=== PATIENT | female | born 1990 | race Caucasian/White ===

== ENCOUNTER → 2018-09-07 | Outpatient (CLI) | payer OTHER ==
[~2018-09-07] MED LIST: ACHD5005 PO; Benzocaine/Menthol TP; DOCU100C37 PO; DOXY1TAB6 PO; IBUP-844 PO; ONDA4TAB11 PO; PREN-37 PO
== END ==
LOC: LABNPT 15:00
PROVIDERS: ATTEND Obstetrics & Gynecology
DX: O13.9 Gestational [pregnancy-induced] hypertension without significant proteinuria, unspecified trimester (principal)
CPT/HCPCS: 82570; 84156

== ENCOUNTER 2018-09-28 09:15 | Observation (INO) | payer OTHER ==
[~2018-09-28] VITALS: Ht 175.3 cm; Wt 127.9 kg
--- NOTE | 2018-09-28 09:15 | NUR ---
Pt arrived to unit ambulates self from clinic accompanied by lanioMadeline and Dr Ramos. Orders received. pt here for monitoring and labs due to bp obtained in office. wt obtained and to room 315. Gowned and to bed. oriented to room, call light and bed controls. plan of care reviewed with pt. and s.o. at bedside.
--- NOTE | 2018-09-28 09:30 | NUR ---
fresh ice water to bedside.
[2018-09-28] MEDS ORDERED: PREN-37 PO (09:33)
[2018-09-28] MEDS ORDERED: ONDA4TAB11 PO (09:33)
[2018-09-28] MEDS ORDERED: DOXY1TAB6 PO (09:33)
[2018-09-28 09:35] VITALS: BP 137/70
--- NOTE | 2018-09-28 09:45 | NUR ---
Dr Ramos notified of 1st bp obtained.
[2018-09-28 09:55] VITALS: BP 121/69
--- NOTE | 2018-09-28 09:55 | NUR ---
Sono to bedside for BPP
--- NOTE | 2018-09-28 10:00 | NUR ---
pt denies feeling contractions.
[2018-09-28 10:12] LABS: BASOPHILS % (AUTO) 0 % (0-10); EOSINOPHILS % (AUTO) 0 % (0-10); HEMATOCRIT 36 % (35-52); HEMOGLOBIN 12.2 G/DL (11.5-16.0); LYMPHOCYTES # (AUTO) 1.3 X 10^3 (1.0-4.0); LYMPHOCYTES % (AUTO) 15 % (12-44); MEAN CORPUSCULAR HEMOGLOBIN 29 PG (25-34); MEAN CORPUSCULAR HGB CONC 34 G/DL (32-36); MEAN CORPUSCULAR VOLUME 87 FL (80-99); MEAN PLATELET VOLUME 9.4 FL (7.4-10.4); MONOCYTES # (AUTO) 0.5 X 10^3 (0.0-1.0); MONOCYTES % (AUTO) 6 % (0-12); NEUTROPHILS # (AUTO) 6.9 X 10^3 (1.8-7.8); NEUTROPHILS % (AUTO) 79 % (42-75); PLATELET COUNT 291 10^3/uL (130-400); RED CELL DISTRIBUTION WIDTH 13.8 % (10.0-14.5); WHITE BLOOD COUNT 8.7 10^3/uL (4.3-11.0)
[2018-09-28 10:15] VITALS: BP 120/73
[2018-09-28 10:36] LABS: ALANINE AMINOTRANSFERASE 10 U/L (0-55); ALBUMIN 3.4 GM/DL (3.2-4.5); ALKALINE PHOSPHATASE 97 U/L (40-136); BILIRUBIN,TOTAL 0.2 MG/DL (0.1-1.0); BUN/CREATININE RATIO 10; CALCIUM 9.1 MG/DL (8.5-10.1); CARBON DIOXIDE 18 MMOL/L (21-32); CHLORIDE 106 MMOL/L (98-107); CREATININE SERUM 0.62 MG/DL (0.60-1.30); GFR ESTIMATED > 60; GLUCOSE 82 MG/DL (70-105); SODIUM 136 MMOL/L (135-145); TOTAL PROTEIN 6.4 GM/DL (6.4-8.2); URIC ACID 4.4 MG/DL (2.6-7.2)
--- NOTE | 2018-09-28 10:49 | Diagnostic Imaging Report ---
TECHNIQUE: Multiple real-time grayscale images were obtained over the gravid uterus. INDICATION: Elevated maternal blood pressure. COMPARISON: 05/31/2018. FINDINGS: Biophysical Profile Score: Movement: 2 Breathin Tone: 2 Fluid: 2 Total: 12/16 Heart Rate: 152 BPM Presentation is cephalic. Placenta is anterior in position. TEODORO is 9.7cm. The single largest vertical pocket is 5.7 cm. IMPRESSION: Normal Biophysical Profile Score. Dictated by: Dictated on workstation # [id number]
[2018-09-28 10:55] VITALS: BP 126/76
[2018-09-28 10:57] LABS: URINE CREATININE FOR RATIO 34 MG/DL (30-125); URINE PROTEIN FOR RATIO ONLY < 6 MG/DL (6-12)
--- NOTE | 2018-09-28 10:57 | NUR ---
Dr Ramos to bedside and reviewed plan of care with pt and at bedside.
--- NOTE | 2018-09-28 11:00 | NUR ---
New orders received for discharge
[2018-09-28 11:15] VITALS: BP 131/76
--- NOTE | 2018-09-28 11:30 | NUR ---
Discharge instructions explained, signed and copy to pt. pt verbalized understanding of instructions and denied questions. Ambulates self off unit accompanied by s.o. To private vehicle with belongings in hand.
== END 2018-09-28 11:16 | disposition home or self-care (01) ==
LOC: LDRP 09:15
PROVIDERS: ADMIT Obstetrics & Gynecology; ATTEND Obstetrics & Gynecology
DX: R03.0 Elevated blood-pressure reading, without diagnosis of hypertension (principal); Z3A.37 37 weeks gestation of pregnancy
CPT/HCPCS: 36415; 76805; 76819; 80053; 82570; 84156; 84550; 85025; 99211; G0378

== ENCOUNTER 2018-10-06 18:34 | Inpatient (IN) | payer OTHER ==
[~2018-10-06] VITALS: Ht 175.3 cm; Wt 127.9 kg
[~2018-10-06 18:34] MED LIST changes: -ACHD5005 PO; -Benzocaine/Menthol TP; -DOCU100C37 PO; -IBUP-844 PO
--- OUTSIDE RECORDS SUMMARY | 2018-10-06 18:39 | XMS REPORT | Continuity of Care Document ---
Author Organization Unknown Address Unknown Allergies Active Description Code Type Severity Reaction Onset Reported/Identified Relationship to Patient Clinical Status Yes No Known Drug Allergies [id number] Drug Allergy Unknown N/A 09/28/2018 Medications There is no data. Problems Date Dx Coded Attending Type Code Diagnosis Diagnosed By 06/01/2018 SILVER LOPEZ DO S Ot Z36.89 ENCOUNTER FOR OTHER SPECIFIED 06/01/2018 DAVIDECH DOSILVER S Ot Z3A.20 20 WEEKS GESTATION OF 06/14/2018 DAVIDECH SILVER WHITE S Ot Z36.89 ENCOUNTER FOR OTHER SPECIFIED 06/14/2018 DAVIDECH DOSILVER S Ot Z3A.20 20 WEEKS GESTATION OF 09/28/2018 SILVER LOPEZ DO S Ot R03.0 ELEVATED BLOOD-PRESSURE READING, W/O YINKA 09/28/2018 DAVIDECH SILVER WHITE S Ot Z3A.37 37 WEEKS GESTATION OF Procedures There is no data. Results Test Result Range Complete blood count (CBC) with automated white blood cell (WBC) differential - 09/28/18 09:50 Blood leukocytes automated count (number/volume) 8.7 10*3/uL 4.3-11.0 Blood erythrocytes automated count (number/volume) 4.17 10*6/uL 4.35-5.85 Venous blood hemoglobin measurement (mass/volume) 12.2 g/dL 11.5-16.0 Blood hematocrit (volume fraction) 36 % 35-52 Automated erythrocyte mean corpuscular volume 87 [foz_us] 80-99 Automated erythrocyte mean corpuscular hemoglobin (mass per erythrocyte) 29 pg 25-34 Automated erythrocyte mean corpuscular hemoglobin concentration measurement (mass/volume) 34 g/dL 32-36 Automated erythrocyte distribution width ratio 13.8 % 10.0- 14.5 Automated blood platelet count (count/volume) 291 10*3/uL 130-400 Automated blood platelet mean volume measurement 9.4 [foz_us] 7.4-10.4 Automated blood neutrophils/100 leukocytes 79 % 42-75 Automated blood lymphocytes/100 leukocytes 15 % 12-44 Blood monocytes/100 leukocytes 6 % 0-12 Automated blood eosinophils/100 leukocytes 0 % 0-10 Automated blood basophils/100 leukocytes 0 % 0-10 Blood neutrophils automated count (number/volume) 6.9 10*3 1.8-7.8 Blood lymphocytes automated count (number/volume) 1.3 10*3 1.0-4.0 Blood monocytes automated count (number/volume) 0.5 10*3 0.0- 1.0 Automated eosinophil count 0.0 10*3/uL 0.0-0.3 Automated blood basophil count (count/volume) 0.0 10*3/uL 0.0-0.1 Comprehensive metabolic panel - 09/28/18 09:50 Serum or plasma sodium measurement (moles/volume) 136 mmol/L 135-145 Serum or plasma potassium measurement (moles/volume) 4.0 mmol/L 3.6-5.0 Serum or plasma chloride measurement (moles/volume) 106 mmol/L 98-107 Carbon dioxide 18 mmol/L 21-32 Serum or plasma anion gap determination (moles/volume) 12 mmol/L 5-14 Serum or plasma urea nitrogen measurement (mass/volume) 6 mg/dL 7-18 Serum or plasma creatinine measurement (mass/volume) 0.62 mg/dL 0.60-1.30 Serum or plasma urea nitrogen/creatinine mass ratio 10 NRG Serum or plasma creatinine measurement with calculation of estimated glomerular filtration rate > NRG Serum or plasma glucose measurement (mass/volume) 82 mg/dL 70-105 Serum or plasma calcium measurement (mass/volume) 9.1 mg/dL 8.5-10.1 Serum or plasma total bilirubin measurement (mass/volume) 0.2 mg/dL 0.1-1.0 Serum or plasma alkaline phosphatase measurement (enzymatic activity/volume) 97 U/L 40-136 Serum or plasma aspartate aminotransferase measurement (enzymatic activity/volume) 16 U/L 5-34 Serum or plasma alanine aminotransferase measurement (enzymatic activity/volume) 10 U/L 0-55 Serum or plasma protein measurement (mass/volume) 6.4 g/dL 6.4-8.2 Serum or plasma albumin measurement (mass/volume) 3.4 g/dL 3.2-4.5 CALCIUM CORRECTED 9.6 mg/dL 8.5-10.1 Serum or plasma uric acid measurement (mass/volume) - 09/28/18 09:50 Serum or plasma uric acid measurement (mass/volume) 4.4 mg/dL 2.6-7.2 Urine protein/creatinine mass ratio - 09/28/18 09:55 Urine protein measurement (mass/volume) < mg/dL 6-12 Urine creatinine measurement (mass/volume) 34 mg/dL 30-125 Urine protein/creatinine mass ratio TNP NRG Encounters ACCT No. Visit Date/Time Discharge Status Pt. Type Provider Facility Loc./Unit Complaint [id number] 09/28/2018 09:15:00 09/28/2018 11:30:00 DIS Outpatient SILVER LOPEZ DO [facility] LDRP HIGH BLOOD PRESSURE [id number] 05/31/2018 14:53:00 05/31/2018 23:59:59 CLS Outpatient SILVER LOPEZ DO [facility] RAD
--- NOTE | 2018-10-06 18:43 | NUR ---
ASHLEY PICHARDO presented to unit via ambulation, accompanied by s/o , for scheduled IOL. Pt. weighed, gowned, voided, and to bed. Pt. oriented to bed controls, call light, TV, heat, and A/C controls.
[2018-10-06 18:50] VITALS: BP 168/92
--- NOTE | 2018-10-06 19:20 | NUR ---
Dr. Ramos called. Orders received at this time.
[2018-10-06] MEDS ORDERED: NS IV 500 ML 500 ML ONE (19:24)
[2018-10-06] MEDS ORDERED: NS IV 1000 ML 1,000 ML IV SCH (19:30)
[2018-10-06] MEDS ORDERED: MINERAL OIL CONCENTRATE 99.9% 15 ML UDC TOP PRN (19:30)
[2018-10-06] MEDS ORDERED: MISOPROSTOL 100 MCG (CYTOTEC) TAB PO ONE (19:30)
[2018-10-06 19:40] VITALS: BP 149/87
[2018-10-06 20:16] LABS: BASOPHILS % (AUTO) 0 % (0-10); EOSINOPHILS % (AUTO) 0 % (0-10); HEMATOCRIT 36 % (35-52); HEMOGLOBIN 12.6 G/DL (11.5-16.0); LYMPHOCYTES # (AUTO) 1.9 X 10^3 (1.0-4.0); LYMPHOCYTES % (AUTO) 25 % (12-44); MEAN CORPUSCULAR HEMOGLOBIN 30 PG (25-34); MEAN CORPUSCULAR HGB CONC 35 G/DL (32-36); MEAN CORPUSCULAR VOLUME 86 FL (80-99); MEAN PLATELET VOLUME 9.4 FL (7.4-10.4); MONOCYTES # (AUTO) 0.6 X 10^3 (0.0-1.0); MONOCYTES % (AUTO) 8 % (0-12); NEUTROPHILS % (AUTO) 67 % (42-75); PLATELET COUNT 323 10^3/uL (130-400); RED CELL DISTRIBUTION WIDTH 13.5 % (10.0-14.5); WHITE BLOOD COUNT 7.4 10^3/uL (4.3-11.0)
[2018-10-06 20:20] VITALS: BP 144/90
[2018-10-06] MEDS: D5 LR IV SOLUTION 1,000 ML IV SCH ×2 (20:20→22:10)
[2018-10-06] MEDS ORDERED: NS IV 500 ML 500 ML IV SCH (20:30)
[2018-10-06] MEDS ORDERED: CATHETER FLUSH 10 ML SYR IV SCH (22:00)
[2018-10-06 22:05] VITALS: BP 121/70
[2018-10-06 23:00] VITALS: BP 139/61
[2018-10-07] VITALS (44 sets, daily range): BP systolic 116–184; BP diastolic 59–89
[2018-10-07] MEDS: MISOPROSTOL 100 MCG (CYTOTEC) TAB PO SCH ×2 (04:10)
[2018-10-07] MEDS: D5 LR IV SOLUTION 1,000 ML IV SCH ×2 (05:11→11:20)
--- NOTE | 2018-10-07 07:38 | History & Physical-OB ---
OB - Chief Complaint & HPI Date/Time Date of Admission: Date of Admission: October 06, 2018 at 18:34 Date seen by a Provider: October 07, 2018 Time Seen by a Provider: 07:35 Chief Complaint/History OB-Reason for Admission/Chief: Induction of Labor Hx : 1 Hx Para: 0 Expected Date of Delivery: Oct 18, 2018 Gestational Age in Weeks: 38 Gestational Age in Days: 2 Indication for induction: other (GHTN) Admission Nurse Assessment Rev: Yes History of Labs see prenatals GBS neg Allergies and Home Medications Allergies Coded Allergies: No Known Drug Allergies (Unverified , 09/28/18) Home Medications Doxylamine Succinate/Vit B6 1 Each Tab.ir.dr, 1 EACH PO BID, (Reported) Ondansetron 4 Mg Tab.rapdis, 4 MG PO NEEDED, (Reported) Vit/Iron Fumarate/FA 1 Each Tablet, 1 EACH PO DAILY, (Reported) Patient Home Medication List Home Medication List Reviewed: Yes OB - History Hx of Present Care: Yes Ultrasounds: Normal mid trimester US Obstetrical Complications: Gestational Hypertension Medical Complications: None Delivery History Adverse Rxn to Tranfusion: No Patient Past Medical History n/a Social History/Family History Alcohol Use: Denies Use Recreational Drug Use: No Immunizations Hepatitis A: Yes Hepatitis B: Yes OB - Admission Exam Physical Exam Vitals: Vital Signs 10/07/18 10/07/18 10/07/18 02:40 04:10 06:40 Temp 97.1 Pulse 91 Resp 18 B/P (MAP) 132/75 (94) Pulse Ox 97 O2 Delivery Room Air HEENT: NCAT Heart: Rhythm Normal Lungs: Clear Abdomen: Gravid Extremities: Normal Reflexes: Normal Cervical Dilatation: 2cm Effacement: 75% Station: -1 Membranes: Intact Heart Rate: 130's Accelerations: Accelerations Present Decelerations: Prolonged Decelerations (x1 last night) Short Term Variability: Present Deportation Examiner Variability: Average (6-25) Contractions on Admission: 6-10 Minutes Apart Labs Laboratory Tests Test 10/06/18 19:45 Range/Units White Blood Count 7.4 4.3-11.0 10^3/uL Red Blood Count 4.24 L 4.35-5.85 10^6/uL Hemoglobin 12.6 11.5-16.0 G/DL Hematocrit 36 35-52 % Mean Corpuscular Volume 86 80-99 FL Mean Corpuscular Hemoglobin 30 25-34 PG Mean Corpuscular Hemoglobin Concent 35 32-36 G/DL Red Cell Distribution Width 13.5 10.0-14.5 % Platelet Count 323 130-400 10^3/uL Mean Platelet Volume 9.4 7.4-10.4 FL Neutrophils (%) (Auto) 67 42-75 % Lymphocytes (%) (Auto) 25 12-44 % Monocytes (%) (Auto) 8 0-12 % Eosinophils (%) (Auto) 0 0-10 % Basophils (%) (Auto) 0 0-10 % Neutrophils # (Auto) 5.0 1.8-7.8 X 10^3 Lymphocytes # (Auto) 1.9 1.0-4.0 X 10^3 Monocytes # (Auto) 0.6 0.0-1.0 X 10^3 Eosinophils # (Auto) 0.0 0.0-0.3 10^3/uL Basophils # (Auto) 0.0 0.0-0.1 10^3/uL OB - Assessment/Plan/Diagnosis Assessment Assessment: induction of labor Admission Dx 27 yo @ 38 weeks GHTN GBS neg Admission Status: Inpatient Order (span 2 midnights) Reason for Inpatient Admission: Induction of labor at term Plan Plan: Induction Induction Method: per Misoprostol Protocol SILVER LOPEZ DO October 07, 2018 07:38
[2018-10-07] MEDS ORDERED: OXYTOCIN/NORMAL SALINE 500 ML IV ONE (07:58)
[2018-10-07] MEDS ORDERED: OXYTOCIN/NORMAL SALINE 500 ML IV SCH (07:59)
[2018-10-07] MEDS ORDERED: SUFENTA 0.6MCG/ML BUPIVA 0.125 100 ML ONE (09:45)
[2018-10-07] MEDS ORDERED: LIDOCAINE PF 2% 5 ML (XYLOCAINE) VIAL ONE (10:15)
[2018-10-07] MEDS ORDERED: fentaNYL INJECTION 100 MCG/2 ML AMP ONE (10:16)
[2018-10-07] MEDS ORDERED: BUPIVACAINE 0.25% 30 ML (SENSORCAINE) VIAL ONE (10:16)
[2018-10-07] MEDS ORDERED: LACTATED RINGERS 1,000 ML IV SCH (11:18)
[2018-10-07] MEDS ORDERED: NALOXONE 0.4 MG/ML 1 ML (NARCAN) VIAL IV PRN (11:30)
[2018-10-07] MEDS ORDERED: ONDANSETRON 4 MG/2 ML (SDV) Z0FRAN IV PRN (11:30)
[2018-10-07] MEDS ORDERED: diphenhydrAMINE 50 MG/ML INJ (BENADRYL) IV PRN (11:30)
[2018-10-07] MEDS ORDERED: EPIDURAL (SUFENTA 0.6MCG/ML BUPIVA 0.125%) 100 ML BAG EPI PRN (11:30)
[2018-10-07] MEDS ORDERED: LIDOCAINE/EPI 2% 1:200,00 (XYLOCAINE) 10 ML VIAL ONE (12:19)
[2018-10-07] MEDS: OXYTOCIN/NORMAL SALINE 500 ML IV SCH ×2 (13:20→15:50)
--- NOTE | 2018-10-07 13:22 | OB Labor & Delivery Record ---
L&D History Date of Service Date of Service: October 07, 2018 History Expected Date of Delivery: Oct 18, 2018 Gestational Age in Weeks: 38 Hx : 1 Hx Para: 0 Complications Events: Induced HTN, Routine care Operative Indications (Cesarea: N/A-Vaginal Delivery Intrapartal Events: None L&D Stage1 Stage One Onset of Labor - Date: October 07, 2018 Monitors and Tracing Monitor Mode: External Heart Rate: 145 Monitor Accelerations: Uniform Monitor Decelerations: Variable Station: -2 Senior Care Variability: Average (6-10) Short Term Variability: Present Presentation: Vertex Vital Signs VS - Last 72 Hours, by Label 10/06/18 10/06/18 10/06/18 10/06/18 18:50 19:40 20:20 22:05 Temp 97.8 Pulse 122 111 95 96 Resp 22 18 B/P (MAP) 168/92 (117) 149/87 (107) 144/90 (108) 121/70 (87) Pulse Ox 97 O2 Delivery Room Air Room Air Room Air Room Air 10/06/18 10/07/18 10/07/18 10/07/18 23:00 00:40 01:10 01:40 Temp 97.5 Pulse 99 87 88 91 Resp 18 16 16 16 B/P (MAP) 139/61 (87) 133/87 (102) 130/75 (93) 124/72 (89) Pulse Ox 98 98 98 98 O2 Delivery Room Air Room Air Room Air Room Air 10/07/18 10/07/18 10/07/18 10/07/18 02:10 02:40 03:10 03:40 Pulse 92 85 77 86 Resp 16 16 16 16 B/P (MAP) 120/72 (88) 133/70 (91) 126/68 (87) 129/70 (89) Pulse Ox 98 97 O2 Delivery Room Air Room Air Room Air Room Air 10/07/18 10/07/18 10/07/18 10/07/18 04:10 04:40 05:10 05:40 Temp 97.1 Pulse 88 79 77 78 Resp 16 18 18 18 B/P (MAP) 135/66 (89) 124/74 (91) 133/77 (95) 139/65 (89) O2 Delivery Room Air Room Air Room Air Room Air 10/07/18 10/07/18 10/07/18 10/07/18 06:10 06:40 07:40 08:08 Temp 98.3 Pulse 86 91 101 93 Resp 18 18 18 18 B/P (MAP) 136/72 (93) 132/75 (94) 136/87 (103) 139/66 (90) O2 Delivery Room Air Room Air Room Air Room Air 10/07/18 10/07/18 10/07/18 10/07/18 08:24 08:53 09:10 09:23 Pulse 87 84 80 73 Resp 18 18 18 18 B/P (MAP) 142/65 (90) 127/61 (83) 142/70 (94) 142/69 (93) O2 Delivery Room Air Room Air Room Air Room Air 10/07/18 09:40 Temp 97.7 Pulse 81 Resp 18 B/P (MAP) 144/73 (96) O2 Delivery Room Air Rupture of Membranes Spontaneous Ruture of Membrane: No Amniotic Membrane Fluid Desc.: Clear Vaginal Bleeding Description: Normal Show Induction/Anesthesia Epidural Cath Placement - Time: 1040 Progress/Notes Pitocin used to augment labor, she progressed to complete and + 2 L&D Stage2 Stage Two Stage II Date: October 07, 2018 Monitors and Tracing Monitor Mode: External Heart Rate: 145 Monitor Accelerations: Uniform Monitor Decelerations: Early Glass Cutting Machine Operator Variability: Average (6-10) Short Term Variability: Present Position: Right Occiput Anterior Presentation: Vertex Cord Descript/Complications Cord Vessel Description: 3 Vessels Delivery Type Delivery Method: Spontaneous Vaginal Anterior Shoulder: Right Episiotomy/Perineal Laceration Laceraction(s)/Extensions: Yes Episiotomy Description: Right Mediolateral Degree (describe repair) rml repaired using 3-0 and 2-0 vicryl suture in usual fashion Condition of Infant Delivery 1 minute Comment: 8 5 minute Comment: 9 Notes Live female weight 8lbs 5 oz Condition of Infant Condition of : Living Exam: No Observed Abnormalities Resuscitation Resuscitation: N/A - Spontaneous Resp L&D Stage3 Stage Three Stage III Date: October 07, 2018 Pictocin Pitocin Administration Comment: 30 mu wide open at delivery of placenta Placenta Delivery Placenta Delivery: Spontaneous Delivery Summary Summary Estimated blood loss (mL): 350 Attending at delivery: Silver Lopez DO Condition of Delivery Examined: Cervix Examined, Uterus Explored Post Hemorrhage: No Condition of Mother stable Condition of (s) stable SILVER LOPEZ DO October 07, 2018 13:22
[2018-10-07] MEDS ORDERED: MEASLES,MUMPS,RUBELLA 1 EA INJ SQ ONE (13:30)
[2018-10-07] MEDS ORDERED: BENZOCAINE/MENTHOL (DERMOPLAST) 56 ML CAN TP PRN (13:30)
[2018-10-07] MEDS ORDERED: WITCH HAZEL(TUCKS) 40 EA JAR TOP PRN (13:30)
[2018-10-07] MEDS ORDERED: HYDROcodone/APAP 5 MG/325 MG (LORTAB) TAB PO PRN (13:30)
[2018-10-07] MEDS ORDERED: TETANUS,DIPTH,PERTUSS P/F (BOOSTRIX) 0.5 ML VIAL IM ONE (13:30)
[2018-10-07] MEDS ORDERED: CATHETER FLUSH 10 ML SYR IV SCH (14:00)
[2018-10-07] MEDS: IBUPROFEN 600 MG (MOTRIN) TAB PO SCH ×2 (16:00→22:36)
--- NOTE | 2018-10-07 16:00 | NUR ---
To room for scheduled Motrin. Bharat Wilson in room assisting pt to bathroom. Epidural cath removed per Bharat Wilson, RN, tip reported intact. +void noted. Pericare performed per this RN, fresh pad and underwear, gown on. Dermoplast and tucks applied. Motrin given. Pt slightly lightheaded upon ambulation but reports improvement when back to bed. VS stable. Advised pt to try to eat. Will continue to monitor. Still awaiting room.
--- NOTE | 2018-10-07 17:31 | Discharge Inst-Women's Service ---
Discharge Inst-Women's Serv Depart Medication/Instructions New, Converted or Re-Newed RX: RX on Chart Final Diagnosis PPD 1 NVD Consults/Follow Up Additional Follow Up: Yes Orders/Referrals Dr. Lopez in 6 weeks Activity Activity: Activity as Tolerated Driving Instructions: No Driving for 1 Week NO SMOKING: NO SMOKING Nothing Inside Vagina: No Douching, No [place], No Tampons Diet Discharge Diet: No Restrictions Symptoms to Report to : Bleeding Excessive, Pain Increased, Fever Over 101 Degrees F, Vaginal Bleeding Increase, Questions/Concerns For Any Problems or Questions: Contact Your Physician SILVER LOPEZ DO October 07, 2018 17:31
[2018-10-07] MEDS ORDERED: IBUP-844 PO (17:33)
[2018-10-07] MEDS ORDERED: ACHD5005 PO (17:33)
[2018-10-07] MEDS ORDERED: Benzocaine/Menthol TP (17:33)
[2018-10-07] MEDS ORDERED: DOCU100C37 PO (17:33)
--- NOTE | 2018-10-07 18:00 | NUR ---
Family moving personal belongings. Pt prepared to move to room. Pt ambulates to room 311 accompanied by RN, and without incident. Pt oriented to room and call light. packet explained. Fresh ice water provided. Family at bedside. Pt denies needs or concerns at this time.
[2018-10-07] MEDS: DOCUSATE SODIUM 100 MG (COLACE) CAP PO SCH (20:42)
[2018-10-08 01:24] VITALS: BP 132/71
[2018-10-08 05:53] VITALS: BP 121/68
[2018-10-08] MEDS: IBUPROFEN 600 MG (MOTRIN) TAB PO SCH ×2 (05:53→12:09)
[2018-10-08 06:55] LABS: BASOPHILS % (AUTO) 0 % (0-10); EOSINOPHILS % (AUTO) 0 % (0-10); HEMATOCRIT 26 % (35-52); HEMOGLOBIN 8.6 G/DL (11.5-16.0); LYMPHOCYTES % (AUTO) 25 % (12-44); MEAN CORPUSCULAR HEMOGLOBIN 29 PG (25-34); MEAN CORPUSCULAR HGB CONC 33 G/DL (32-36); MEAN CORPUSCULAR VOLUME 89 FL (80-99); MEAN PLATELET VOLUME 8.8 FL (7.4-10.4); MONOCYTES # (AUTO) 0.6 X 10^3 (0.0-1.0); MONOCYTES % (AUTO) 8 % (0-12); NEUTROPHILS # (AUTO) 5.4 X 10^3 (1.8-7.8); NEUTROPHILS % (AUTO) 67 % (42-75); PLATELET COUNT 252 10^3/uL (130-400); RED CELL DISTRIBUTION WIDTH 13.9 % (10.0-14.5)
[2018-10-08 08:45] VITALS: BP 128/62
[2018-10-08] MEDS: DOCUSATE SODIUM 100 MG (COLACE) CAP PO SCH (08:45)
--- NOTE | 2018-10-08 08:45 | NUR ---
THIS RN AT BEDSIDE. INTRODUCES SELF TO PT AND FAMILY. PHYSICAL ASSESSMENT COMPLETE, VSS, IV DC, REVIEW PLAN FO CARE WITH PT, QUESTIONS ANSWERED. PT DENIES NEEDS, CALL LIGHT WITHIN REACH.
--- NOTE | 2018-10-08 09:28 | Postpartum Progress Note ---
Note Note Day # 1 Subjective: Patient is without complaints. Ambulating, voiding. Tolerating a regular diet without nausea or vomiting. Normal lochia. Pain is well controlled with oral pain medications. Objective: Physical Exam: General - Alert and oriented, no apparent distress Abdomen - Soft, appropriately tender to palpation, non-distended, fundus firm at umbilicus Extremities - no edema, negative Devan's bilaterally Assessment: PPD 1 NVD Acute blood loss anemia Plan: Routine care. Encourage breast feeding. Encourage ambulation. Ferrous sulfate supplementation. Plan for discharge today Vitals - Labs Vital Signs - I&O Vital Signs Date Time Temp Pulse Resp B/P (MAP) Pulse Ox O2 Delivery O2 Flow Rate FiO2 10/08/18 05:53 97.5 83 18 121/68 (85) 98 Room Air 10/08/18 01:24 97.3 97 20 132/71 (91) 99 Room Air 10/07/18 20:58 98.3 92 16 135/75 (95) 98 Room Air 10/07/18 16:08 119 18 136/61 (86) 98 Room Air 10/07/18 14:43 97.5 116 18 131/63 (85) Room Air 10/07/18 13:55 122 18 156/74 (101) Room Air 10/07/18 13:24 120 18 128/89 (102) Room Air 10/07/18 12:25 136 18 122/60 (80) Room Air 10/07/18 12:08 104 18 119/81 (94) Room Air 10/07/18 11:54 95 18 131/59 (83) 98 Room Air 10/07/18 11:40 105 18 132/72 (92) 98 Room Air 10/07/18 11:30 101 18 130/62 (84) Room Air 10/07/18 11:26 97 18 132/63 (86) 99 Room Air 10/07/18 11:21 102 18 116/69 (85) 99 Room Air 10/07/18 11:15 104 18 145/60 (88) 99 Room Air 10/07/18 11:11 96.8 107 18 130/68 (88) 100 Room Air 10/07/18 11:08 99 18 122/65 (84) 100 Room Air 10/07/18 11:05 99 18 128/61 (83) 100 Room Air 10/07/18 11:02 103 18 129/61 (83) 100 Room Air 10/07/18 10:59 109 18 126/60 (82) 99 Room Air 10/07/18 10:56 110 18 123/59 (80) 100 Room Air 10/07/18 10:53 111 18 122/60 (80) 100 Room Air 10/07/18 10:49 111 18 130/67 (88) 98 Room Air 10/07/18 10:38 105 18 151/82 (105) 98 Room Air 10/07/18 10:23 108 18 171/77 (108) Room Air 10/07/18 10:10 105 18 184/77 (112) Room Air 10/07/18 09:40 97.7 81 18 144/73 (96) Room Air I & O 10/08/18 07:00 Intake Total 2250 ml Balance 2250 ml Labs Laboratory Tests 10/08/18 06:40: White Blood Count 8.0, Red Blood Count 2.95L, Hemoglobin 8.6#L, Hematocrit 26L, Mean Corpuscular Volume 89, Mean Corpuscular Hemoglobin 29, Mean Corpuscular Hemoglobin Concent 33, Red Cell Distribution Width 13.9, Platelet Count 252, Mean Platelet Volume 8.8, Neutrophils (%) (Auto) 67, Lymphocytes (%) (Auto) 25, Monocytes (%) (Auto) 8, Eosinophils (%) (Auto) 0, Basophils (%) (Auto) 0, Neutrophils # (Auto) 5.4, Lymphocytes # (Auto) 2.0, Monocytes # (Auto) 0.6, Eosinophils # (Auto) 0.0, Basophils # (Auto) 0.0 SILVER LOPEZ DO October 08, 2018 09:28
--- NOTE | 2018-10-08 10:00 | NUR ---
REPORT GIVEN TO CHAS SHARP AT THIS TIME.
[2018-10-08 12:09] VITALS: BP 141/88
[2018-10-08 12:55] VITALS: BP 124/79
--- NOTE | 2018-10-08 14:35 | Anesthesia-Regional Post-Op ---
Regional Patient Condition Mental Status: Alert, Oriented x3 Circulation: Same as Pre-Op Headache: Absent Sensation: Full Recovery Motor Block: Absent Post Op Complications Complications None Follow Up Care/Instructions Patient Instructions None needed. Anesthesia/Patient Condition Patient is doing well, no complaints, stable vital signs, no apparent adverse anesthesia problems. No complications reported per nursing. RICARDO GAITAN CRNA October 08, 2018 14:35
--- NOTE | 2018-10-08 14:50 | NUR ---
verbal and handouts given on home/discharge instructions to pt. pt verbalizes understanding and verifies by signing signature page.
--- NOTE | 2018-10-08 14:55 | NUR ---
Pt discharge. Pt will remain in room 311 and border. baby not discharge for elevated bili. Pt responsible for her own meds. Rx given to pt. all personal items remain with pt.
== END 2018-10-08 14:50 | disposition home or self-care (01) | DRG 806 ==
LOC: LDRP 18:34
PROVIDERS: ADMIT Obstetrics & Gynecology; ATTEND Obstetrics & Gynecology
PROC: 3E0DXGC Introduction of Other Therapeutic Substance into Mouth and Pharynx, External Approach (ICD-10-PCS; 2018-10-06)
PROC: 10E0XZZ Delivery of Products of Conception, External Approach (ICD-10-PCS; principal; 2018-10-07)
PROC: 0W8NXZZ Division of Female Perineum, External Approach (ICD-10-PCS; 2018-10-07)
DX: O13.4 Gestational [pregnancy-induced] hypertension without significant proteinuria, complicating childbirth (principal); O90.81 Anemia of the puerperium; D62 Acute posthemorrhagic anemia; Z37.0 Single live birth; Z3A.38 38 weeks gestation of pregnancy
CPT/HCPCS: 36415; 85025; 86850; 86900; 86901